=== PATIENT | male | born 1980 | race Two or more races ===

== ENCOUNTER 2024-09-02 08:24 | Inpatient (IN) | payer MEDICAID, OTHER ==
[~2024-09-02] VITALS: Ht 182.9 cm; Wt 70.0 kg
[2024-09-02] MEDS: LORazepam 2MG/ML-1ML VIAL IV SCH (08:45)
[2024-09-02] MEDS: THIAMINE 100mg/ml INJ (200mg/2ml VIAL) IV ONE (08:45)
[2024-09-02] MEDS: FOLIC ACID 1 MG in D5W 5% 50 ML INJ ONE (08:45)
[2024-09-02] MEDS: MULTIPLE VITAMIN TAB PO ONE (08:45)
[2024-09-02] MEDS: ONDANSETRON HCL 4 MG/2 ML VIAL IV ONE (08:59)
[2024-09-02] MEDS: LORazepam 2MG/ML-1ML VIAL IV ONE (08:59)
[2024-09-02] MEDS: SODIUM CHLORIDE 0.9% 1,000 ML IVB ONE (09:08)
[2024-09-02 09:26] LABS: Basophils # (auto) 0 10 ^3/uL (0-0.2); Basophils % (auto) 0.2 % (0.0-2.0); Eosinophils # (auto) 0 10 ^3/uL (0-0.8); Hematocrit 43.4 % (41.0-53.0); Hemoglobin 14.6 g/dL (13.5-17.5); Lymphocytes # (auto) 0.3 10 ^3/uL (0.4-5.4); Lymphocytes % (auto) 4.6 % (10.0-50.0); Mean Corpuscular Hgb Conc. 33.6 g/dL (32.0-36.0); Mean Corpuscular Volume 92.2 fL (80.0-100.0); Monocytes # (auto) 0.1 10 ^3/uL (0-1.3); Monocytes % (auto) 1.7 % (0.0-12.0); Neutrophils # (auto) 5.7 10 ^3/uL (1.6-8.6); Neutrophils % (auto) 93.5 % (37.0-80.0); Nucleated Red Blood Cells % 0.1 %; Platelet Count (auto) 120 10^3/uL (140-450); Red Blood Cells 4.71 10^6/uL (4.5-5.90); Red Cell Distribution Width 14.2 % (11.8-14.3); White Blood Cell 6.1 10^3/uL (4.4-10.8)
[2024-09-02 09:46] LABS: Alanine Aminotransferase 69 U/L (7-40); Albumin 4.4 g/dL (3.2-4.8); Alkaline Phosphatase 83 U/L (46-116); Anion Gap 12 (5-15); Aspartate Aminotransferase 113 U/L (13-40); BUN/Creatinine Ratio 8.6 (10.0-20.0); Blood Alcohol 80.9 mg/dL (<10); Blood Urea Nitrogen 6 mg/dL (9-23); Calcium 8.4 mg/dL (8.7-10.4); Carbon Dioxide 24 mmol/L (20-31); Chloride 108 mmol/L (98-107); Glucose 114 mg/dL (74-106); Potassium 3.5 mmol/L (3.5-5.1); Sodium 144 mmol/L (136-145)
[2024-09-02 09:47] LABS: Bilirubin, Total 1.2 mg/dL (0.2-1.0); Total Protein 6.9 g/dL (5.7-8.2)
[2024-09-02 09:55] VITALS: PULSE 80; RESP 18; O2SAT 96
[2024-09-02] MEDS ORDERED: NITROGLYCERIN 0.4 MG SL TAB SL PRN (12:45)
[2024-09-02] MEDS ORDERED: MORPHINE SULFATE INJ 2 MG/ml SYRG IV PRN (12:45)
[2024-09-02] MEDS ORDERED: LORazepam 2MG/ML-1ML VIAL IV PRN (12:45)
[2024-09-02] MEDS: SODIUM CHLORIDE 0.9% 1,000 ML IV SCH (12:45)
[2024-09-02] MEDS ORDERED: DOCUSATE SOD 100 MG CAP PO PRN (12:45)
[2024-09-02] MEDS ORDERED: ONDANSETRON HCL 4 MG/2 ML VIAL IV PRN (12:45)
[2024-09-02] MEDS: LORazepam 2MG/ML-1ML VIAL IM ONE (12:45)
[2024-09-02] MEDS: chlordiazePOXIDE HCL 25 MG CAP PO SCH (12:45)
[2024-09-02 16:41] VITALS: BP 121/72; PULSE 80; RESP 17; TEMP 98.6; O2SAT 97
[2024-09-02] MEDS: LORazepam 2MG/ML-1ML VIAL IV PRN (18:18)
[2024-09-02] MEDS: FOLIC ACID 1 MG, MAGNESIUM SULF SDV 50% 8 MEQ, MULTIPLE VITAMIN 10 ML, THIAMINE INJ 100... INJ SCH (18:22)
[2024-09-02 20:00] VITALS: PULSE 69; RESP 17; O2SAT 94
[2024-09-02 21:00] VITALS: BP 125/73; PULSE 69; RESP 17; TEMP 98.1; O2SAT 94
[2024-09-03 00:52] VITALS: BP 116/74; PULSE 68; RESP 18; TEMP 98.2; O2SAT 95
[2024-09-03 05:00] VITALS: BP 123/77; PULSE 66; RESP 17; TEMP 98.1; O2SAT 95
[2024-09-03 06:50] LABS: Basophils # (auto) 0 10 ^3/uL (0-0.2); Basophils % (auto) 0.2 % (0.0-2.0); Eosinophils # (auto) 0.1 10 ^3/uL (0-0.8); Eosinophils % (auto) 1.2 % (0.0-7.0); Hemoglobin 14.8 g/dL (13.5-17.5); Lymphocytes # (auto) 0.9 10 ^3/uL (0.4-5.4); Lymphocytes % (auto) 19.2 % (10.0-50.0); Mean Corpuscular Hemoglobin 31.6 pg (28.0-32.0); Mean Corpuscular Hgb Conc. 34.4 g/dL (32.0-36.0); Mean Corpuscular Volume 91.9 fL (80.0-100.0); Monocytes # (auto) 0.3 10 ^3/uL (0-1.3); Monocytes % (auto) 5.4 % (0.0-12.0); Neutrophils # (auto) 3.5 10 ^3/uL (1.6-8.6); Nucleated Red Blood Cells % 0.1 %; Platelet Count (auto) 92 10^3/uL (140-450); Red Blood Cells 4.68 10^6/uL (4.5-5.90); Red Cell Distribution Width 13.8 % (11.8-14.3); White Blood Cell 4.8 10^3/uL (4.4-10.8)
[2024-09-03 07:07] LABS: Alanine Aminotransferase 67 U/L (7-40); Albumin 4.2 g/dL (3.2-4.8); Alkaline Phosphatase 78 U/L (46-116); Anion Gap 8 (5-15); Aspartate Aminotransferase 80 U/L (13-40); BUN/Creatinine Ratio 10.8 (10.0-20.0); Blood Urea Nitrogen 7 mg/dL (9-23); Carbon Dioxide 27 mmol/L (20-31); Chloride 103 mmol/L (98-107); Glucose 78 mg/dL (74-106); Potassium 3.4 mmol/L (3.5-5.1); Sodium 138 mmol/L (136-145)
[2024-09-03 07:08] LABS: Bilirubin, Total 1.9 mg/dL (0.2-1.0); Total Protein 6.5 g/dL (5.7-8.2)
[2024-09-03 08:00] VITALS: RESP 17
[2024-09-03 08:30] VITALS: BP 116/77; PULSE 79; RESP 19; TEMP 98.2; O2SAT 96
[2024-09-03] MEDS: chlordiazePOXIDE HCL 25 MG CAP PO SCH (09:18)
[2024-09-03] MEDS: POTASSIUM CHLORIDE 20 MEQ, LIDOCAINE 1% (LOCAL ANESTH.) 2 ML in SODIUM CHL 0.9% 100 ML IV ONE (09:20)
[2024-09-03 11:40] VITALS: BP 122/76; PULSE 87; RESP 19; TEMP 98.3; O2SAT 97
[2024-09-04] MEDS ORDERED: chlordiazePOXIDE HCL 25 MG CAP PO SCH (10:00)
[2024-09-05] MEDS ORDERED: chlordiazePOXIDE HCL 25 MG CAP PO SCH (07:00)
== END 2024-09-03 14:30 | disposition left against medical advice (07) | DRG 52 ==
LOC: ER 08:24 → EDBD 08:24 → OVERFLOW 12:59 → EAST 16:18
PROVIDERS: ADMIT Nurse Practitioner Family; ATTEND Nurse Practitioner Family
DX: G93.41 Metabolic encephalopathy (principal); K76.0 Fatty (change of) liver, not elsewhere classified; E86.0 Dehydration; Z53.29 Procedure and treatment not carried out because of patient's decision for other reasons; R74.01 Elevation of levels of liver transaminase levels; F10.139 Alcohol abuse with withdrawal, unspecified; Z79.899 Other long term (current) drug therapy; Y90.4 Blood alcohol level of 80-99 mg/100 ml; Z68.20 Body mass index [BMI] 20.0-20.9, adult
CPT/HCPCS: 36415; 70450; 76705; 80053; 80320; 82306; 82607; 83690; 83735; 85025; G0378; J2003; J2405; J7060

== ENCOUNTER 2024-10-25 08:38 | Inpatient (IN) | payer MEDICAID ==
[~2024-10-25] VITALS: Ht 177.8 cm; Wt 81.8 kg
[2024-10-25 09:34] LABS: Basophils # (auto) 0.1 10 ^3/uL (0-0.2); Basophils % (auto) 0.8 % (0.0-2.0); Eosinophils # (auto) 0 10 ^3/uL (0-0.8); Eosinophils % (auto) 0.4 % (0.0-7.0); Hematocrit 43.9 % (41.0-53.0); Hemoglobin 14.9 g/dL (13.5-17.5); Lymphocytes # (auto) 0.7 10 ^3/uL (0.4-5.4); Lymphocytes % (auto) 10.2 % (10.0-50.0); Mean Corpuscular Hemoglobin 31.6 pg (28.0-32.0); Mean Corpuscular Volume 93.1 fL (80.0-100.0); Monocytes # (auto) 0.3 10 ^3/uL (0-1.3); Monocytes % (auto) 4.9 % (0.0-12.0); Neutrophils # (auto) 5.4 10 ^3/uL (1.6-8.6); Neutrophils % (auto) 83.7 % (37.0-80.0); Platelet Count (auto) 154 10^3/uL (140-450); Red Blood Cells 4.72 10^6/uL (4.5-5.90); Red Cell Distribution Width 15.5 % (11.8-14.3); White Blood Cell 6.4 10^3/uL (4.4-10.8)
[2024-10-25 10:18] LABS: Alkaline Phosphatase 106 U/L (46-116); Anion Gap 11 (5-15); BUN/Creatinine Ratio 8.8 (10.0-20.0); Blood Alcohol 139.3 mg/dL (<10); Calcium 9.5 mg/dL (8.7-10.4); Carbon Dioxide 29 mmol/L (20-31); Chloride 101 mmol/L (98-107); Glucose 105 mg/dL (74-106); Potassium 3.8 mmol/L (3.5-5.1); Sodium 141 mmol/L (136-145)
[2024-10-25 10:19] LABS: Bilirubin, Total 0.7 mg/dL (0.2-1.0); Total Protein 7.4 g/dL (5.7-8.2)
[2024-10-25 10:20] LABS: Alanine Aminotransferase 197 U/L (7-40); Albumin 4.9 g/dL (3.2-4.8); Aspartate Aminotransferase 168 U/L (13-40); Blood Urea Nitrogen 6 mg/dL (9-23)
[2024-10-25 10:45] LABS: Urine Bacteria FEW /hpf (None Seen); Urine Blood Negative /uL (Negative); Urine Clarity Clear (Clear); Urine Color Yellow (Yellow); Urine Hyaline Cast FEW /lpf (0 - 2); Urine Mucus FEW (None Seen); Urine Protein, UAD 1+ (Negative); Urine Specific Gravity 1.022 (1.001-1.035); Urine Urobilinogen 4 mg/dL (Negative); Urine WBC 1 /hpf (0 - 3); Urine pH 6.5 (5.0-9.0)
--- NOTE | 2024-10-25 11:09 | ED.PDOC ---
History of Present Illness HPI Comments 43 y/o M, with a Hx of EtOH abuse, is BIBA for c/o EtOH withdrawal w/associated nausea, vomiting, and fever, today. Patient endorses on onset of symptoms following recent EtOH binge, with last drink taking place yesterday. Patient also complains on having issues sleeping, due to symptoms, in addition to having hiccups that has been persisting for the pat 7x days. Patient endorses no additional recent substance use/exposure. Denies having any abdominal pain, hematemesis, chills, dizziness, tremors, or other associated symptoms or modifiers at this time. 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 Operator Helper Past Medical History PAST MEDICAL HISTORY: Denies Surgical History: Denies all surgeries Family History Family History: Reviewed,noncontributory to illness Social History Smoker: Non-Smoker Alcohol: Heavy Drugs: Denies Drug Use Lives In: Home Constitutional: reports: fever; denies: chills, diaphoresis, fatigue, malaise, sweats, weakness, others EENTM: reports: others (hiccups); denies: blurred vision, double vision, ear bleeding, ear discharge, ear drainage, ear pain, ear ringing, eye pain, eye redness, hearing loss, mouth pain, mouth swelling, nasal discharge, nose bleeding, nose congestion, nose pain, photophobia, tearing, throat pain, throat swelling, voice changes Respiratory: denies: cough, hemoptysis, orthopnea, SOB at rest, shortness of breath, SOB with excertion, stridor, wheezing, others Cardiovascular: denies: chest pain, dizzy spells, diaphoresis, Dyspnea on exertion, edema, irregular heart beat, left arm pain, lightheadedness, palpitations, PND, syncope, others Gastrointestinal: reports: nausea, vomiting; denies: abdomen distended, abd ominal pain, blood streaked bowels, constipated, diarrhea, dysphagia, difficulty swallowing, hematemesis, melena, poor appetite, poor fluid intake, rectal bleeding, rectal pain, others Genitourinary: denies: burning, dysuria, flank pain, frequency, hematuria, incontinence, penile discharge, penile sore, pain, testicle pain, testicle swelling, urgency, others Neurological: denies: dizziness, fainting, headache, left sided numbness, left sided weakness, numbness, paresthesia, pre-existing deficit, right sided numbness, right sided weakness, seizure, speech problems, tingling, tremors, weakness, others Musculoskeletal: denies: back pain, gout, joint pain, joint swelling, muscle pain, muscle stiffness, neck pain, others Integumetry: denies: bruises, change in color, change in hair/nails, dryness, laceration, lesions, lumps, rash, wounds, others Allergic/Immunocompromised: denies: Difficulty Healing, Frequent Infections, Hives, Itching, others Hematologic/Lymphatic: denies: anemia, blood clots, easy bleeding, easy bruising, swollen glands, others Endocrine: denies: excessive hunger, excessive sweating, excessive thirst, excessive urination, flushing, intolerance to cold, intolerance to heat, unexplained weight gain, unexplained weight loss, others Psychiatric: denies: anxiety, bipolar disorder, depression, hopeless, panic disorder, schizophrenia, sleepless, suicidal, others All Other Systems: Reviewed and Negative Physical Exam General Appearance: Moderate Distress HEENT: Normal ENT Inspection, Pharynx Normal, TMs Normal Neck: Full Range of Motion, Non-Tender, Normal, Normal Inspection Respiratory: Chest Non-Tender, Lungs Clear, No Accessory Muscle Use, No Respiratory Distress, Normal Breath Sounds Cardiovascular: No Edema, No JVD, No Murmur, No Gallop, Normal Peripheral Pulses, Regular Rate/Rhythm Breast Exam: Deferred Gastrointestinal: Diffuse, No Organomegaly, No Pulsatile Mass, Normal Bowel Sounds, Soft, Tenderness Genitalia: Deferred Pelvic: Deferred Rectal: Deferred Extremities: No calf tenderness, Normal capillary refill, Normal inspection, Normal range of motion, Non-tender, No pedal edema Musculoskeletal : Apperance: Normal Neurologic: Alert, construction estimator II-XII nml as Tested, Motor Weakness, Normal Affect, No Sensory Deficits Cerebellar Function: Normal Reflexes: Normal Skin: Dry, Normal Color, Warm Lymphatic: No Adenopathy Was a procedure done? Was a procedure done?: No Differential Dx Considerations may include: EtOH withdrawal, substance abuse, gastritis, gastroenteritis X-Ray, Labs, Meds, VS Vital Signs Date Time Temp Pulse Resp B/P (MAP) Pulse Ox O2 Delivery O2 Flow Rate FiO2 10/25/24 11:52 98.1 74 18 140/62 (88) 96 98.1 10/25/24 11:52 74 18 96 Room Air 10/25/24 08:45 80 10/25/24 08:40 98.3 72 18 122/78 (93) 95 Lab Test 10/25/24 10:12 10/25/24 09:25 Range/Units Urine Color Yellow Yellow Urine Clarity Clear Clear Urine pH 6.5 5.0-9.0 Urine Specific [place] 1.022 1.001-1.035 Urine Protein 1+ H Negative Urine Ketones 1+ H Negative Urine Blood Negative Negative /uL Urine Nitrite Negative Negative Urine Bilirubin Negative Negative Urine Urobilinogen 4 H Negative mg/dL Urine Leukocyte Esterase Negative Negative /uL Urine RBC 1 0 - 3 /hpf Urine WBC 1 0 - 3 /hpf Urine Squamous Epithelial Cells Few <5 /hpf Urine Bacteria Few H None Seen /hpf Urine Hyaline Casts Few 0 - 2 /lpf Urine Mucus Few None Seen Urine Glucose Normal Normal mg/dL Urine Opiates Screen Neg NEGATIVE Urine Fentanyl Screen Neg NEGATIVE Urine Barbiturates Screen Pos NEGATIVE Urine Phencyclidine Screen Neg NEGATIVE Urine Amphetamines Screen Neg NEGATIVE Urine Benzodiazepines Screen Pos NEGATIVE Urine Cocaine Screen Neg NEGATIVE Urine Cannabinoids Screen Neg NEGATIVE White Blood Count 6.4 4.4-10.8 10^3/uL Red Blood Count 4.72 4.5-5.90 10^6/uL Hemoglobin 14.9 13.5-17.5 g/dL Hematocrit 43.9 41.0-53.0 % Mean Corpuscular Volume 93.1 80.0-100.0 fL Mean Corpuscular Hemoglobin 31.6 28.0-32.0 pg Mean Corpuscular Hemoglobin Concent 34.0 32.0-36.0 g/dL Red Cell Distribution Width 15.5 H 11.8-14.3 % Platelet Count 154 140-450 10^3/uL Mean Platelet Volume 7.2 6.9-10.8 fL Neutrophils (%) (Auto) 83.7 H 37.0-80.0 % Lymphocytes (%) (Auto) 10.2 10.0-50.0 % Monocytes (%) (Auto) 4.9 0.0-12.0 % Eosinophils (%) (Auto) 0.4 0.0-7.0 % Basophils (%) (Auto) 0.8 0.0-2.0 % Neutrophils # (Auto) 5.4 1.6-8.6 10 ^3/uL Lymphocytes # (Auto) 0.7 0.4-5.4 10 ^3/uL Monocytes # (Auto) 0.3 0-1.3 10 ^3/uL Eosinophils # (Auto) 0 0-0.8 10 ^3/uL Basophils # (Auto) 0.1 0-0.2 10 ^3/uL Nucleated Red Blood Cells 0.0 % Sodium Level 141 136-145 mmol/L Potassium Level 3.8 3.5-5.1 mmol/L Chloride Level 101 98-107 mmol/L Carbon Dioxide Level 29 20-31 mmol/L Anion Gap 11 5-15 Blood Urea Nitrogen 6 L 9-23 mg/dL Creatinine 0.68 L 0.700-1.30 mg/dL Glomerular Filtration Rate Calc 120 >90 mL/min BUN/Creatinine Ratio 8.8 L 10.0-20.0 Serum Glucose 105 74-106 mg/dL Calcium Level 9.5 8.7-10.4 mg/dL Total Bilirubin 0.7 0.2-1.0 mg/dL Aspartate Amino Transferase (AST) 168 H 13-40 U/L Alanine Aminotransferase (ALT) 197 H 7-40 U/L Alkaline Phosphatase 106 46-116 U/L Troponin I High Sensitivity 6 </=54 ng/L Total Protein 7.4 5.7-8.2 g/dL Albumin 4.9 H 3.2-4.8 g/dL Plasma/Serum Blood Alcohol 139.3 H <10 mg/dL Current Medications Medications (Trade) Dose Ordered Sig/Donny Route Start Time Stop Time Status Last Admin Sodium Chloride 1,000 ml @ 1,000 mls/hr Q1H ONCE IV 10/25/24 11:15 10/25/24 12:14 DC 10/25/24 11:42 Ondansetron HCl (Zofran) 4 mg ONCE ONCE IV 10/25/24 11:15 10/25/24 11:16 DC 10/25/24 12:17 Lorazepam (Ativan Inj) 1 mg ONCE ONCE IV 10/25/24 11:15 10/25/24 11:16 DC 10/25/24 12:13 Thiamine HCl 100 mg ONCE ONCE IV 10/25/24 11:15 10/25/24 11:16 DC 10/25/24 12:17 The CBC shows no sign of any abnormalities The chemistry panel is within normal limits The patient's alcohol is 139.3 The patient was given thiamine 100 mg IV push for the possible hiccups The patient was given Zofran for the vomiting The patient was given 1 L bolus of normal saline The patient was also given Ativan 1 mg IV push. Images Reviewed?: Images reviewed and evaluated by me Time of 1ST Reevaluation: 11:20 Reevaluation 1ST: Unchanged Patient Education/Counseling: Diagnosis, Treatment, Prognosis Family Education/Counseling: No Family Present Departure 1 Departure Time of Disposition: 18:20 Impression: Primary Impression: Alcohol withdrawal syndrome Qualified Codes: F10.930 - Alcohol use, unspecified with withdrawal, uncomplicated Disposition: 09 ADMITTED INPATIENT Admit to: [facility] Condition: Fair e-Prescriptions No Active Prescriptions or Reported Meds Critical Care Note Critical Care Time?: Yes (35 min-critical care time only) Stability Stability form required: Yes Unstable for transfer: ICU, CCU, PCU, [facility] (Intensive VS monitoring), ED Physician Assesment (Clinical assesment) Heart Score Heart Score: Heart Score Response (Comments) Value History N/A 0 EKG N/A 0 Age N/A 0 Risk Factors N/A 0 Troponin N/A 0 Total 0 I personally scribed for JAYJAY LAY MD ([email or web address]) on 10/25/24 at 11:09. Electronically submitted by Fish Devi ([email or web address]). JAYJAY LAY MD Oct 25, 2024 11:09
[2024-10-25 11:18] LABS: Barbiturate Scree,Urine Pos (NEGATIVE)
[2024-10-25 11:19] LABS: Amphetamine Screen, Urine Neg (NEGATIVE); Benzodiazephine Screen, Urine Pos (NEGATIVE); Cannabinoid Screen, Urine Neg (NEGATIVE); Cocaine Screen, Urine Neg (NEGATIVE); Opiate Scree,Urine Neg (NEGATIVE); Phencyclidine Screen, Urine Neg (NEGATIVE)
[2024-10-25] MEDS: SODIUM CHLORIDE 0.9% 1,000 ML IV ONE (11:42)
[2024-10-25] MEDS: LORazepam 2MG/ML-1ML VIAL IV ONE ×2 (12:13→16:56)
[2024-10-25] MEDS: ONDANSETRON HCL 4 MG/2 ML VIAL IV ONE (12:17)
[2024-10-25] MEDS: THIAMINE 100mg/ml INJ (200mg/2ml VIAL) IV ONE (12:17)
[2024-10-25] MEDS ORDERED: ACETAMINOPHEN 325 MG TAB PO PRN (14:30)
[2024-10-25] MEDS ORDERED: MORPHINE SULFATE INJ 2 MG/ml SYRG IV PRN (14:30)
[2024-10-25] MEDS ORDERED: NITROGLYCERIN 0.4 MG SL TAB SL PRN (14:30)
[2024-10-25] MEDS ORDERED: HYDROcodone-ACET 5/325MG TAB PO PRN (14:30)
[2024-10-25] MEDS ORDERED: DOCUSATE SOD 100 MG CAP PO PRN (14:30)
--- NOTE | 2024-10-25 14:41 | DVHHP2 ---
History of Present Illness Reason for Visit: ETOH withdrawal History of Present Illness Deejay Zheng is a 43-year-old male with no significant past medical history who comes in with complaints of ETOH dependence and withdrawal. Past Surgical History: Hernia Repair Family History: None Smoke: No ALCOHOL: heavy (2 bottles of vodka/day) Drugs: None Lives: with Family Domestic Violence: Neg Review of Systems Constitutional: No: Fever, Chills, Sweats, Weakness, Malaise, Other Eyes: No: Pain, Vision change, Conjunctivae inflammation, Eyelid inflammation, Other, Redness ENT: No: Ear pain, Ear discharge, Nose pain, Nose discharge, Nose congestion, Mouth pain, Mouth swelling, Throat pain, Throat swelling, Other Respiratory: No: Cough, Dry, Shortness of breath, SOB with excertion, Wheezing, Hemoptysis, Pleuritic Pain, Sputum, Wheezing, Other Cardiovascular: No: Chest Pain, Palpitations, Orthopnea, Paroxysmal Noc. Dyspnea, Edema, Lt Headedness, Other Gastrointestinal: No: Nausea, Vomiting, Abdominal Pain, Diarrhea, Constipation, Melena, Hematochezia, Other Genitourinary: No Dysuria, No Frequency, No Incontinence, No Hematuria, No Retention, No Other Musculoskeletal: No: other, neck pain, shoulder pain, arm pain, back pain, hand pain, leg pain, foot pain Skin: No: Rash, Lesions, Jaundice, Bruising, Other Neurological: No: Weakness, Numbness, Incoordination, Change in speech, Confusion, Seizures, Other Allergies: Coded Allergies: NO KNOWN ALLERGIES (Unverified , 09/02/24) Exam Vital Signs Vital Signs Date Time Temp Pulse Resp B/P (MAP) Pulse Ox O2 Delivery O2 Flow Rate FiO2 10/25/24 11:52 98.1 74 18 140/62 (88) 96 98.1 10/25/24 11:52 Room Air General Appearance: Alert, Oriented X3, Cooperative, moderate distress HEENT: Atraumatic, PERRLA Respiratory: Clear to auscultation, Normal air movement Labs/Xrays Labs Test 10/25/24 10:12 10/25/24 09:25 Range/Units Urine Color Yellow Yellow Urine Clarity Clear Clear Urine pH 6.5 5.0-9.0 Urine Specific [place] 1.022 1.001-1.035 Urine Protein 1+ H Negative Urine Ketones 1+ H Negative Urine Blood Negative Negative /uL Urine Nitrite Negative Negative Urine Bilirubin Negative Negative Urine Urobilinogen 4 H Negative mg/dL Urine Leukocyte Esterase Negative Negative /uL Urine RBC 1 0 - 3 /hpf Urine WBC 1 0 - 3 /hpf Urine Squamous Epithelial Cells Few <5 /hpf Urine Bacteria Few H None Seen /hpf Urine Hyaline Casts Few 0 - 2 /lpf Urine Mucus Few None Seen Urine Glucose Normal Normal mg/dL Urine Opiates Screen Neg NEGATIVE Urine Fentanyl Screen Neg NEGATIVE Urine Barbiturates Screen Pos NEGATIVE Urine Phencyclidine Screen Neg NEGATIVE Urine Amphetamines Screen Neg NEGATIVE Urine Benzodiazepines Screen Pos NEGATIVE Urine Cocaine Screen Neg NEGATIVE Urine Cannabinoids Screen Neg NEGATIVE White Blood Count 6.4 4.4-10.8 10^3/uL Red Blood Count 4.72 4.5-5.90 10^6/uL Hemoglobin 14.9 13.5-17.5 g/dL Hematocrit 43.9 41.0-53.0 % Mean Corpuscular Volume 93.1 80.0-100.0 fL Mean Corpuscular Hemoglobin 31.6 28.0-32.0 pg Mean Corpuscular Hemoglobin Concent 34.0 32.0-36.0 g/dL Red Cell Distribution Width 15.5 H 11.8-14.3 % Platelet Count 154 140-450 10^3/uL Mean Platelet Volume 7.2 6.9-10.8 fL Neutrophils (%) (Auto) 83.7 H 37.0-80.0 % Lymphocytes (%) (Auto) 10.2 10.0-50.0 % Monocytes (%) (Auto) 4.9 0.0-12.0 % Eosinophils (%) (Auto) 0.4 0.0-7.0 % Basophils (%) (Auto) 0.8 0.0-2.0 % Neutrophils # (Auto) 5.4 1.6-8.6 10 ^3/uL Lymphocytes # (Auto) 0.7 0.4-5.4 10 ^3/uL Monocytes # (Auto) 0.3 0-1.3 10 ^3/uL Eosinophils # (Auto) 0 0-0.8 10 ^3/uL Basophils # (Auto) 0.1 0-0.2 10 ^3/uL Nucleated Red Blood Cells 0.0 % Sodium Level 141 136-145 mmol/L Potassium Level 3.8 3.5-5.1 mmol/L Chloride Level 101 98-107 mmol/L Carbon Dioxide Level 29 20-31 mmol/L Anion Gap 11 5-15 Blood Urea Nitrogen 6 L 9-23 mg/dL Creatinine 0.68 L 0.700-1.30 mg/dL Glomerular Filtration Rate Calc 120 >90 mL/min BUN/Creatinine Ratio 8.8 L 10.0-20.0 Serum Glucose 105 74-106 mg/dL Calcium Level 9.5 8.7-10.4 mg/dL Total Bilirubin 0.7 0.2-1.0 mg/dL Aspartate Amino Transferase (AST) 168 H 13-40 U/L Alanine Aminotransferase (ALT) 197 H 7-40 U/L Alkaline Phosphatase 106 46-116 U/L Troponin I High Sensitivity 6 </=54 ng/L Total Protein 7.4 5.7-8.2 g/dL Albumin 4.9 H 3.2-4.8 g/dL Plasma/Serum Blood Alcohol 139.3 H <10 mg/dL Assessment/Plan Assessment/Plan Assessment: Alcohol withdrawal syndrome, Transaminitis, Plan: Admit to [facility], [place] protocol, Librium tapering dose, IV hydration, Liver ultrasound, Daily Banana bag, IV hydration, Plan discussed with: Patient Date of Service: Oct 25, 2024 Billing Provider: BURTON CHEW Common Visit Codes: [id number] INP/OBS CARE (MOD) BURTON CHEW Oct 25, 2024 14:41
--- NOTE | 2024-10-25 15:22 | DVH ---
EXAM: XY CHEST XRAY 1 VIEW TECHNIQUE: Single frontal chest radiograph CLINICAL HISTORY: SOB COMPARISON: None Findings/Impression: Frontal chest radiograph demonstrates no acute osseous or superficial soft tissue abnormalities. The trachea is midline. The cardiac silhouette and mediastinum are within normal limits. No pneumothorax, pleural effusions, or consolidations.
--- NOTE | 2024-10-25 15:43 | DVH ---
ULTRASOUND ABDOMEN LIMITED INDICATION: ETOH TECHNIQUE: Multiple real-time sonographic images of the abdomen were obtained. COMPARISON: US ABDOMEN LIMITED on DOS: 09/02/24 FINDINGS: The visualized liver parenchyma appears echogenic consistent with steatosis. . The liver measures 19.3 cm. No discrete hepatic lesion or intrahepatic biliary ductal dilatation is identified. There is no evidence of gallstones, gallbladder wall thickening or pericholecystic fluid. The common biliary duct is not dilated. The right kidney measures 11.7 cm length. No sonographic evidence of nephrolithiasis or hydronephro sis. Visualized portions of the pancreas appears within normal limits. IMPRESSION: 1. Hepatomegaly with diffuse hepatic steatosis. HS:Y
[2024-10-25 15:58] LABS: Magnesium 1.8 mg/dL (1.6-2.6)
[2024-10-25 16:30] VITALS: PULSE 76; RESP 12; O2SAT 90
[2024-10-25] MEDS: ONDANSETRON HCL 4 MG/2 ML VIAL IV PRN (16:56)
[2024-10-25] MEDS: chlordiazePOXIDE HCL 25 MG CAP PO SCH (16:56)
[2024-10-25] MEDS: SODIUM CHLORIDE 0.9% 1,000 ML IVB ONE (16:57)
[2024-10-25] MEDS: chlorproMAZINE HCL 25 MG TAB PO PRN (17:19)
[2024-10-25] MEDS: FOLIC ACID 1 MG, MULTIPLE VITAMIN 10 ML, MAGNESIUM SULF SDV 50% 8 MEQ, THIAMINE INJ 100... INJ SCH (17:19)
[2024-10-25] MEDS: THIAMINE HCL 100 MG TAB PO ONE (17:22)
[2024-10-25] MEDS: FOLIC ACID 1 MG TAB PO ONE (17:22)
[2024-10-25] MEDS: LORazepam 2MG/ML-1ML VIAL IV SCH (17:22)
[2024-10-25] MEDS: MULTIPLE VITAMIN TAB PO ONE (17:22)
[2024-10-25] MEDS: SODIUM CHLORIDE 0.9% 1,000 ML IV SCH (17:22)
--- NOTE | 2024-10-25 18:57 | ECG ---
[facility] Test Date: 2024-10-25 Test Time: 08:42:03 Pat Name: ALPHONSE DACOSTA Department: ED Room: [address] [place] [address] Gender: M X Ray Technologist: SHANE : 1980 Requested By: PILI YO Order Number: [id number] Reading MD: Tano Marshall Measurements Intervals [place] Rate: 80 P: 79 MA: 171 QRS: -79 QRSD: 119 T: 61 QT: 404 QTc: 466 Interpretive Statements Sinus rhythm Incomplete RBBB and LAFB ST elev, probable normal early repol pattern Electronically Signed On 10-26-2024 12:04:47 PST by Tano Marshall Please click the below link to view image of tracing.
[2024-10-25 19:45] VITALS: PULSE 70; RESP 16; O2SAT 96
[2024-10-26 05:15] LABS: Basophils # (auto) 0 10 ^3/uL (0-0.2); Basophils % (auto) 0.5 % (0.0-2.0); Eosinophils # (auto) 0.1 10 ^3/uL (0-0.8); Eosinophils % (auto) 1.3 % (0.0-7.0); Hematocrit 43.9 % (41.0-53.0); Hemoglobin 15.1 g/dL (13.5-17.5); Lymphocytes # (auto) 0.8 10 ^3/uL (0.4-5.4); Lymphocytes % (auto) 13.8 % (10.0-50.0); Mean Corpuscular Hemoglobin 31.8 pg (28.0-32.0); Mean Corpuscular Hgb Conc. 34.4 g/dL (32.0-36.0); Mean Corpuscular Volume 92.5 fL (80.0-100.0); Monocytes # (auto) 0.4 10 ^3/uL (0-1.3); Monocytes % (auto) 7.6 % (0.0-12.0); Neutrophils # (auto) 4.2 10 ^3/uL (1.6-8.6); Neutrophils % (auto) 76.8 % (37.0-80.0); Nucleated Red Blood Cells % 0.1 %; Platelet Count (auto) 119 10^3/uL (140-450); Red Blood Cells 4.75 10^6/uL (4.5-5.90); Red Cell Distribution Width 15.3 % (11.8-14.3); White Blood Cell 5.4 10^3/uL (4.4-10.8)
[2024-10-26 05:28] LABS: Albumin 4.8 g/dL (3.2-4.8); Alkaline Phosphatase 95 U/L (46-116); Anion Gap 10 (5-15); Calcium 10.2 mg/dL (8.7-10.4); Carbon Dioxide 30 mmol/L (20-31); Glucose 90 mg/dL (74-106); Total Protein 7.4 g/dL (5.7-8.2)
[2024-10-26 05:33] LABS: Alanine Aminotransferase 158 U/L (7-40); Aspartate Aminotransferase 105 U/L (13-40); BUN/Creatinine Ratio 8.1 (10.0-20.0); Bilirubin, Total 1.4 mg/dL (0.2-1.0); Blood Urea Nitrogen < 5 mg/dL (9-23); Chloride 94 mmol/L (98-107); Potassium 3.1 mmol/L (3.5-5.1); Sodium 134 mmol/L (136-145)
[2024-10-26 08:20] VITALS: PULSE 75; RESP 16; O2SAT 90
[2024-10-26] MEDS: LORazepam 2MG/ML-1ML VIAL IV PRN (08:31)
[2024-10-26] MEDS ORDERED: THIAMINE HCL 100 MG TAB PO SCH (10:00)
[2024-10-26] MEDS ORDERED: MULTIPLE VITAMIN TAB PO SCH (10:00)
[2024-10-26] MEDS ORDERED: FOLIC ACID 1 MG TAB PO SCH (10:00)
[2024-10-26] MEDS: chlordiazePOXIDE HCL 25 MG CAP PO SCH (11:08)
--- NOTE | 2024-10-26 13:16 | DVHPN2 ---
Subjective alcohol withdrawal symptoms Reviewed: Care Plan, H&P, Labs, Medications, Previous Orders, Radiology Changes from previous H/P or p: No Changes Eyes: No Pain, No Vision change, No Conjunctivae inflammation, No Eyelid inflammation, No Other, No Redness ENT: No Ear pain, No Ear discharge, No Nose pain, No Nose discharge, No Nose congestion, No Mouth pain, No Mouth swelling, No Throat pain, No Throat swelling, No Other Cardiovascular: No Chest Pain, No Palpitations, No Orthopnea, No Paroxysmal Noc. Dyspnea, No Edema, No Lt Headedness, No Other Respiratory: No Cough, No Dry, No Shortness of breath, No SOB with excertion, No Wheezing, No Hemoptysis, No Pleuritic Pain, No Sputum, No Other Gastrointestinal: No Nausea, No Vomiting, No Abdominal Pain, No Diarrhea, No Constipation, No Melena, No Hematochezia, No Other Genitourinary: No Dysuria, No Frequency, No Incontinence, No Hematuria, No Retention, No Other Musculoskeletal: No other, No neck pain, No shoulder pain, No arm pain, No back pain, No hand pain, No leg pain, No foot pain Skin: No Rash, No Lesions, No Jaundice, No Bruising, No Other Objective Vitals Vital Signs Date Time Temp Pulse Resp B/P (MAP) Pulse Ox O2 Delivery O2 Flow Rate FiO2 10/26/24 12:00 71 23 118/71 (87) 93 10/26/24 08:23 97.9 97.9 10/26/24 08:20 Room Air* 0 21 Intake/Output Intake and Output 10/26/24 07:00 Intake Total 2013.2 ml Output Total 2500 ml Balance -486.8 ml Intake IV Total 2013.2 ml Output Urine Total 2500 ml Exam alcohol withdrawal symptoms shaky and hiccups General Appearance: Alert, Oriented X3 HEENT: PERRLA Lungs: Clear to auscultation Cardiovascular: Regular rate Abdomen: Normal bowel sounds Extremities: No clubbing, No cyanosis, No edema, Normal pulses Neuro: Normal gait, Normal speech, Strength at 5/5 X4 ext, Normal tone, S ensation intact, Cranial nerves 3-12 NL, Reflexes 2+ Skin: Dry, Intact Psych/Mental Status: Other (anxiety ) Medications Current Medications Medications Dose Ordered Sig/Donny Route Start Time Stop Time Status Last Admin Dose Admin Acetaminophen/ Hydrocodone Bitart 1 tab Q4HP PRN PO 10/25/24 14:30 Ondansetron HCl 4 mg Q4HP PRN IV 10/25/24 14:30 10/25/24 16:56 4 MG Docusate Sodium 100 mg BIDPRN PRN PO 10/25/24 14:30 Acetaminophen 650 mg Q6HP PRN PO 10/25/24 14:30 Nitroglycerin 0.4 mg Q5MINP PRN SL 10/25/24 14:30 Morphine Sulfate 2 mg Q30M PRN IV 10/25/24 14:30 Chlordiazepoxide HCl 50 mg Q12HR PO 10/26/24 10:00 10/26/24 22:01 10/26/24 11:08 50 MG Chlordiazepoxide HCl 25 mg Q12HR PO 10/27/24 10:00 10/27/24 22:01 Chlordiazepoxide HCl 25 mg QAM PO 10/28/24 07:00 10/28/24 07:01 Lorazepam 1 mg Q6H IV 10/25/24 14:30 Lorazepam 1 mg Q2HPRN PRN IV 10/25/24 14:30 10/26/24 08:31 1 MG Chlorpromazine HCl 25 mg Q6HP PRN PO 10/25/24 14:45 10/26/24 11:40 25 MG Folic Acid 1 mg/ Multivitamins 10 ml/Magnesium Sulfate 8 meq/ Thiamine HCl 100 mg/Dextrose 1,013.2 ml @ 125.001 mls/hr DAILY@1800 INJ 10/25/24 17:00 10/25/24 17:19 125.001 MLS/HR Sodium Chloride 1,000 ml @ 125 mls/hr Q8H IV 10/25/24 17:00 10/26/24 08:31 125 MLS/HR Laboratory Results Laboratory Tests 10/26/24 04:31 Chemistry Test 10/25/24 15:11 10/26/24 04:31 Magnesium Level 1.8 mg/dL (1.6-2.6) Albumin 4.8 g/dL (3.2-4.8) Calcium Level 10.2 mg/dL (8.7-10.4) Total Protein 7.4 g/dL (5.7-8.2) LFT Test 10/26/24 04:31 Alanine Aminotransferase (ALT) 158 U/L (7-40) H Alkaline Phosphatase 95 U/L (46-116) Aspartate Amino Transferase (AST) 105 U/L (13-40) H Total Bilirubin 1.4 mg/dL (0.2-1.0) H Urinalysis Test 10/25/24 10:12 Urine Color Yellow (Yellow) Urine Clarity Clear (Clear) Urine pH 6.5 (5.0-9.0) Urine Specific [place] 1.022 (1.001-1.035) Urine Protein 1+ (Negative) H Urine Ketones 1+ (Negative) H Urine Blood Negative /uL (Negative) Urine Nitrite Negative (Negative) Urine Bilirubin Negative (Negative) Urine Urobilinogen 4 mg/dL (Negative) H Urine Leukocyte Esterase Negative /uL (Negative) Urine RBC 1 /hpf (0 - 3) Urine WBC 1 /hpf (0 - 3) Urine Squamous Epithelial Cells Few /hpf (<5) Urine Bacteria Few /hpf (None Seen) H Urine Hyaline Casts Few /lpf (0 - 2) Urine Mucus Few (None Seen) Urine Glucose Normal mg/dL (Normal) Labs and/or images reviewed: Labs reviewed by me Assessment/Plan Assessment/Plan 43 year-old male tongan speaking aox4 came into the ER for alcohol withdrawal symptoms, compliants have shacking and hiccups. no significant medical history hernia repair ETOH. drinks excessive at home 2 bottle of vodka a day. pt denies any fever , nausea , vomiting, shortness of breath, palpitations , chest pain, tremors, agitation ,sz,tachycardia assessment: -alcohol withdraw - anxiety - positive drug screen + barbiturates , + benzos -transaminitis diagnostic : - liver ultrasound: hepatomegaly plan: -normal saline 125 mls/hr -thiamine & folic acid replacement -Librium -chlorpromazine for hiccups -CIWA protocol - Ativan for agitation - repeat labs in AM Plan discussed with: Patient, Other (nurse) Date of Service: Oct 26, 2024 Billing Provider: SENG HOBSON NP Common Visit Codes: [id number] INP/OBS CARE(LOW) KARI HENDERSON STUDENT STARCHER AND [employer]ANGE FEEDER Oct 26, 2024 13:16
[2024-10-26 19:57] VITALS: PULSE 98; RESP 24; O2SAT 97
[2024-10-26] MEDS: BACLOFEN 10 MG TAB PO SCH (22:55)
[2024-10-27 08:00] VITALS: PULSE 102; RESP 22; TEMP 98.6; O2SAT 94
--- NOTE | 2024-10-27 09:01 | DVHPN2 ---
Subjective Patient continues to report having uncontrolled hiccups. Reviewed: Care Plan, H&P, Labs, Medications, Previous Orders, Radiology Changes from previous H/P or p: No Changes General: Per HPI Eyes: No Pain, No Vision change, No Conjunctivae inflammation, No Eyelid inflammation, No Other, No Redness ENT: No Ear pain, No Ear discharge, No Nose pain, No Nose discharge, No Nose congestion, No Mouth pain, No Mouth swelling, No Throat pain, No Throat swelling, No Other Cardiovascular: No Chest Pain, No Palpitations, No Orthopnea, No Paroxysmal Noc. Dyspnea, No Edema, No Lt Headedness, No Other Respiratory: No Cough, No Dry, No Shortness of breath, No SOB with excertion, No Wheezing, No Hemoptysis, No Pleuritic Pain, No Sputum, No Other Gastrointestinal: No Nausea, No Vomiting, No Abdominal Pain, No Diarrhea, No Constipation, No Melena, No Hematochezia, No Other Genitourinary: No Dysuria, No Frequency, No Incontinence, No Hematuria, No Retention, No Other Musculoskeletal: No other, No neck pain, No shoulder pain, No arm pain, No back pain, No hand pain, No leg pain, No foot pain Skin: No Rash, No Lesions, No Jaundice, No Bruising, No Other Objective Vitals Vital Signs Date Time Temp Pulse Resp B/P (MAP) Pulse Ox O2 Delivery O2 Flow Rate FiO2 10/27/24 08:15 97 10/27/24 08:00 98.6 20 90/42 (58) 95 98.6 10/26/24 19:57 Room Air* 0 21 Intake/Output Intake and Output 10/27/24 07:00 Intake Total 2450 ml Output Total 3450 ml Balance -1000 ml Intake Oral 200 ml IV Total 2250 ml Output Urine Total 3450 ml General Appearance: Alert, Oriented X3, Cooperative, mild distress HEENT: Atraumatic, PERRLA Lungs: Clear to auscultation Cardiovascular: Regular rate, Normal S1, Normal S2 Abdomen: Normal bowel sounds Musculoskeletal: Normal sensory function, Normal motor function Extremities: No clubbing, No cyanosis, No edema, Normal pulses Neuro: Normal gait, Normal speech, Strength at 5/5 X4 ext, Normal tone, S ensation intact, Cranial nerves 3-12 NL, Reflexes 2+ Skin: Dry, Intact Psych/Mental Status: Other (anxiety ) Medications Current Medications Medications Dose Ordered Sig/Donny Route Start Time Stop Time Status Last Admin Dose Admin Acetaminophen/ Hydrocodone Bitart 1 tab Q4HP PRN PO 10/25/24 14:30 Ondansetron HCl 4 mg Q4HP PRN IV 10/25/24 14:30 10/25/24 16:56 4 MG Docusate Sodium 100 mg BIDPRN PRN PO 10/25/24 14:30 Acetaminophen 650 mg Q6HP PRN PO 10/25/24 14:30 Nitroglycerin 0.4 mg Q5MINP PRN SL 10/25/24 14:30 Morphine Sulfate 2 mg Q30M PRN IV 10/25/24 14:30 Chlordiazepoxide HCl 25 mg Q12HR PO 10/27/24 10:00 10/27/24 22:01 Chlordiazepoxide HCl 25 mg QAM PO 10/28/24 07:00 10/28/24 07:01 Lorazepam 1 mg Q6H IV 10/25/24 14:30 10/26/24 20:30 1 MG Lorazepam 1 mg Q2HPRN PRN IV 10/25/24 14:30 10/27/24 02:42 1 MG Folic Acid 1 mg/ Multivitamins 10 ml/Magnesium Sulfate 8 meq/ Thiamine HCl 100 mg/Dextrose 1,013.2 ml @ 125.001 mls/hr DAILY@1800 INJ 10/25/24 17:00 10/26/24 18:29 125.001 MLS/HR Sodium Chloride 1,000 ml @ 125 mls/hr Q8H IV 10/25/24 17:00 10/27/24 01:20 125 MLS/HR Baclofen 10 mg Q8HR PO 10/26/24 22:00 10/27/24 14:01 10/27/24 06:14 10 MG Laboratory Results Laboratory Tests 10/26/24 04:31 Urinalysis Test 10/25/24 10:12 Urine Color Yellow (Yellow) Urine Clarity Clear (Clear) Urine pH 6.5 (5.0-9.0) Urine Specific [place] 1.022 (1.001-1.035) Urine Protein 1+ (Negative) H Urine Ketones 1+ (Negative) H Urine Blood Negative /uL (Negative) Urine Nitrite Negative (Negative) Urine Bilirubin Negative (Negative) Urine Urobilinogen 4 mg/dL (Negative) H Urine Leukocyte Esterase Negative /uL (Negative) Urine RBC 1 /hpf (0 - 3) Urine WBC 1 /hpf (0 - 3) Urine Squamous Epithelial Cells Few /hpf (<5) Urine Bacteria Few /hpf (None Seen) H Urine Hyaline Casts Few /lpf (0 - 2) Urine Mucus Few (None Seen) Urine Glucose Normal mg/dL (Normal) Labs and/or images reviewed: Labs reviewed by me, Image(s) reviewed by me Assessment/Plan Assessment/Plan Impression: -alcohol withdrawals -alcoholism -uncontrolled hiccups -hypokalemia -hepatic steatosis, probable cirrhosis Plan: -continue banana bag given patient has persistent tremors -continue Librium with p.r.n. IV Ativan for worsening withdrawal symptoms -potassium replacement -patient had failure of resolution with Thorazine for hiccups. Baclofen added yesterday, without any relief and patient's symptoms. We will add metoclopramide 10 mg p.o. t.i.d. -repeat labs in a.m. -IV magnesium Total time spent with patient discussing and formulating plan of care: 35 minutes. This medical document was created using an electronic medical record system with [employer] dictation system. Although this document has been carefully reviewed, there may still be some phonetic and typographical errors. These areas are purely typographical due to imperfections of the software programs, and do not reflect any compromise in the patient's medical care. Plan discussed with: Patient, Other (RN) My Orders Orders - SENG HOBSON NP Procedure Category Date Status Time Baclofen Tablet PHA 10/26/24 In Process (Liorisal Tablet) 22:00 Basic Metabolic Panel LAB 10/27/24 Logged 07:54 Metoclopramide Tablet PHA 10/27/24 Verified (Reglan Tablet) 14:00 Magnesium Juan Pablo PHA 10/27/24 Verified 09:00 Date of Service: Oct 27, 2024 Billing Provider: SENG HOBSON NP Common Visit Codes: [id number] INP/OBS CARE(HIGH) SENG HOBSON NP Oct 27, 2024 09:01
[2024-10-27] MEDS: MAGNESIUM SULFATE 1GM/100ML 100 ML IV ONE (09:47)
[2024-10-27] MEDS: chlordiazePOXIDE HCL 25 MG CAP PO SCH (09:48)
[2024-10-27 12:50] LABS: Anion Gap 13 (5-15); Calcium 10.4 mg/dL (8.7-10.4); Carbon Dioxide 24 mmol/L (20-31)
[2024-10-27 12:55] LABS: BUN/Creatinine Ratio 7.9 (10.0-20.0)
[2024-10-27 12:56] LABS: Blood Urea Nitrogen 6 mg/dL (9-23); Chloride 96 mmol/L (98-107); Glucose 199 mg/dL (74-106); Potassium 3.2 mmol/L (3.5-5.1); Sodium 133 mmol/L (136-145)
[2024-10-27] MEDS: METOCLOPRAMIDE HCL 10 MG TAB PO SCH (14:24)
[2024-10-27] MEDS: MULTIPLE VITAMIN TAB PO ONE (17:57)
[2024-10-27] MEDS: FOLIC ACID 1 MG TAB PO ONE (17:57)
[2024-10-27] MEDS: THIAMINE HCL 100 MG TAB PO ONE (17:57)
[2024-10-27] MEDS: MAGNESIUM OXIDE 400 MG TAB PO ONE (17:57)
[2024-10-27 20:00] VITALS: PULSE 92; RESP 20; O2SAT 96
[2024-10-27] MEDS: TEMAZEPAM 15 MG CAP PO ONE (21:28)
[2024-10-27 22:00] VITALS: BP 103/65; PULSE 85; RESP 25; O2SAT 91
--- NOTE | 2024-10-27 22:31 | DVH ---
CLINICAL HISTORY: CONTINUOUS HICCUPS X10 DAYS TECHNIQUE: Helical imaging carried out from skull base to vertex without intravenous contrast. This e xam was performed according to our departmental dose optimization program. Up-to-date CT equipment an d radiation dose reduction techniques are utilized as appropriate. WID: COMPARISON: CT HEAD WITHOUT CONTRAST on DOS: 09/02/24 FINDINGS: The ventricles and subarachnoid spaces are normal in size and configuration. There is no midline berta ft or mass effect. The pena white matter interfaces are maintained. The basal cisterns are patent. Th ere is no evidence of acute intracranial hemorrhage or extra-axial fluid collection. The mastoid air cells and visualized paranasal sinuses are well-aerated aside from mucosal thickening of posterior ri ght ethmoid air cells. IMPRESSION: No acute intracranial abnormality.
[2024-10-28] MEDS ORDERED: chlordiazePOXIDE HCL 25 MG CAP PO SCH (07:00)
[2024-10-28] MEDS ORDERED: FOLIC ACID 1 MG TAB PO SCH (10:00)
[2024-10-28] MEDS ORDERED: MULTIPLE VITAMIN TAB PO SCH (10:00)
[2024-10-28] MEDS ORDERED: MAGNESIUM OXIDE 400 MG TAB PO SCH (10:00)
[2024-10-28] MEDS ORDERED: THIAMINE HCL 100 MG TAB PO SCH (10:00)
--- NOTE | 2024-10-30 14:45 | ECG ---
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
== END 2024-10-27 23:40 | disposition left against medical advice (07) | DRG 249 ==
LOC: EDBD 08:38 → ER 08:38 → EDUNIT# 08:38 → TELE 14:25
PROVIDERS: ADMIT Nurse Practitioner Family; ATTEND Nurse Practitioner Acute Care
DX: R11.2 Nausea with vomiting, unspecified (principal); K74.60 Unspecified cirrhosis of liver; E87.6 Hypokalemia; G25.2 Other specified forms of tremor; Z53.29 Procedure and treatment not carried out because of patient's decision for other reasons; R74.01 Elevation of levels of liver transaminase levels; K76.0 Fatty (change of) liver, not elsewhere classified; F10.230 Alcohol dependence with withdrawal, uncomplicated; F41.9 Anxiety disorder, unspecified; R06.6 Hiccough; F10.239 Alcohol dependence with withdrawal, unspecified; Z79.899 Other long term (current) drug therapy; Y90.9 Presence of alcohol in blood, level not specified
CPT/HCPCS: 36415; 70450; 71045; 76705; 80048; 80053; 80307; 80320; 81001; 83735; 84484; 85025; 93005; 96361; 96374; 96375; 99291; G0378; J2405